=== PATIENT | male | born 1990 | race Two or more races ===

== ENCOUNTER 2020-03-14 09:19 | Outpatient (REF) | payer SELFPAY | END 2020-03-14 09:20 | disposition home or self-care (01) | LOC: HO.LAB 09:19 | PROVIDERS: Visit Provider Internal Medicine | DX: Z20.828 Contact with and (suspected) exposure to other viral communicable diseases (principal) | CPT/HCPCS: C9803; U0003 ==

== ENCOUNTER 2020-05-09 19:15 | Emergency (ER) | payer MEDICAID, SELFPAY ==
[2020-05-09 19:24] VITALS: BP 129/74; PULSE 95; RESP 16; TEMP 37.3; O2SAT 98; BMI 25.1
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
--- NOTE | 2020-05-09 22:32 | PC.NURSE ---
PT EATING AND DRINKING IN ROOM WITH OUT ISSUE.
== END 2020-05-09 22:32 | disposition home or self-care (01) ==
PROVIDERS: Emergency Provider Emergency Medicine Emergency Medical Services
DX: S09.90XA Unspecified injury of head, initial encounter (principal); S06.0X0A Concussion without loss of consciousness, initial encounter; S00.11XA Contusion of right eyelid and periocular area, initial encounter; Y00.XXXA Assault by blunt object, initial encounter; Y93.9 Activity, unspecified; Y92.9 Unspecified place or not applicable; Y99.9 Unspecified external cause status; F17.200 Nicotine dependence, unspecified, uncomplicated
CPT/HCPCS: 70450; 70480; 72125; 99284

== ENCOUNTER 2025-01-04 19:26 | Emergency (ER) | payer MEDICAID, SELFPAY ==
--- NOTE | 2025-01-04 | ECG_ITS ---
Test Reason : CHEST PAIN Blood Pressure : */* mmHG Vent. Rate : 80 BPM Atrial Rate : 80 BPM P-R Int : 150 ms QRS Dur : 94 ms QT Int : 364 ms P-R-T Axes : 50 46 10 degrees QTcB Int : 419 ms Normal sinus rhythm Normal ECG When compared with ECG of 15-Nov-2013 01:03, No significant change was found Referred By: Generic ED Physician Electronically Signed By: Diomedes Zarco
--- NOTE | ~2025-01-04 | XR_ITS ---
CLINICAL HISTORY: cp 2 view chest x-ray Comparison: None provided Findings: No consolidation or effusion. Normal size heart. No acute fracture. IMPRESSION: 1. No acute findings. This document has been electronically signed by: Bobby Walls MD on 01/04/2025 21:43:46
[2025-01-04 19:36] VITALS: BP 129/75; PULSE 81; RESP 17; TEMP 36.6; O2SAT 98; BMI 29.4
--- NOTE | 2025-01-04 19:37 | ED_ITS ---
HPI - General Adult General Chief complaint: Chest Pain Stated complaint: CP, increase BP Time Seen by Provider: 01/04/25 23:20 Source: patient, RN notes reviewed and old records reviewed Mode of arrival: ambulatory Limitations: no limitations History of Present Illness ED Provider: Britany HPI narrative: 34-year-old male who denies any known past medical history presents for evaluation of left-sided chest pain. The patient reports that he had a brief episode of chest pain that was left- sided radiating to his left arm around 5 or 6 p.m. today. His symptoms started while he was playing with his child He describes it as moderate exertion. He reports this is the 3rd episode of chest pain with similar a exertion in the last 2 months He denies any history of hypertension, coronary artery disease or hyperlipidemia. He reports some family history of coronary artery disease with his maternal aunt in his grandfather having MIs Currently the patient has no chest pain or shortness of breath. He denies any fevers, chills, coughing No other complaints or concerns at this time Related Data Allergies Allergy/AdvReac Type Severity Reaction Status Date / Time No Known Allergies Allergy Verified 01/04/25 19:39 Review of Systems 2 Constitutional: Constitutional: Denies body ache(s), Denies chills and Denies fever(s) Eyes: Eyes: Denies blurry vision ENT: Denies vertigo and Denies dizziness Cardiovascular: Cardiovascular: Reports chest pain, Reports chest pain with activity and Denies dyspnea Respiratory: Respiratory: Denies dyspnea Gastrointestinal: Gastrointestinal: Denies abdominal pain, Denies nausea and Denies vomiting Musculoskeletal: Musculoskeletal: Denies back pain Integumentary/Breasts: Skin/Breast: Denies rash Neurologic: Denies vertigo and Denies dizziness Psychiatric: Psychiatric: Denies anxiety [facility] Past Medical History Medical History (Updated 01/05/25 @ 00:33 by Landen Garg) No known health problems Social History Social History Alcohol intake: never Advance Directives: No Advance Directives Information Provided: No Do you have a plan to hurt others: No Plan Physical Exam ED Vital Signs: Vital Signs - 24 hr 01/04/25 19:36 01/04/25 22:41 01/05/25 00:31 Temperature 97.8 F 97.8 F Pulse Rate 81 68 77 Respiratory Rate 17 11 L 13 Blood Pressure 129/75 128/83 121/76 Pulse Oximetry 98 99 96 Oxygen Delivery Method Room Air Room Air Room Air BMI result Body Mass Index 29.4 Const General: healthy appearing, comfortable, no acute distress, alert and awake Nutritional Appearance: well nourished Orientation/consciousness: patient oriented x3 HENMT Head: Yes normocephalic and Yes atraumatic Eyes Eyelids: Yes eyelids normal Conjunctivae: conjunctivae normal Sclerae: sclerae normal Corneas: corneas normal Pupils: Equal, round and reactive pupils present EOM: EOMs intact bilaterally Neck Neck: Yes full ROM Resp Effort & Inspection: normal respiratory effort, able to speak in complete sentences and not labored Cardio Rate: regular rate Rhythm: regular rhythm GI Inspection: No distended Palpation (GI): Soft to palpation, not firm, nontender, no guarding and not rigid Skin General skin exam: elasticity normal Neuro General: patient oriented x3 Cranial nerves: Yes Equal, round and reactive pupils present and Yes Bilaterally intact EOM present Cognition (Neuro): normal cognition Extrem Other: Moving all extremities well without any obvious deformities Course Course Course Narrative: This is a Rapid Medical Examination (RME) performed by Micki Jason PA-C in triage. Full HPI, ROS, assessment and treatment plan per primary provider in the Main ED. Hx: 34 yo M here for eval of chest pains, tingling in UEs, and elevated BP x 2 hours. Plan: labs, ekg Medical Decision Making Medical Decision Making [facility] Narrative: 34-year-old male with no significant past medical history presents for evaluation of an episode chest pain. In fact this is the 3rd episode of chest pain no last 2 months with slight exertion. He reports that his symptoms previously resolved in the room and after about an hour or two. Currently he is asymptomatic. His EKG is nonischemic. Initial troponin is negative, vital signs are stable. He had a chest x-ray ordered that did not show any acute findings. We will order a repeat troponin as he came in shortly after his pain started, if this is negative I anticipate discharge. The patient will likely require follow up with Cardiology due to his exertional angina and family history of coronary artery disease. He is PERC negative Differential Diagnosis Differential Diagnoses: The differential diagnosis associated with the presentation includes pain ACS PE Pneumothorax Bronchitis Lab Data [facility] Lab Attestation statement: I reviewed the patient's lab results. The patient has a mild leukocytosis without a left shift. A very slight anemia of unclear etiology. This is normocytic anemia. There was no evidence of active bleeding. Chemistries are within normal limits, in his troponin negative, renal functions are normal limits. 01/04/25 20:33 01/04/25 20:33 Labs: Lab Results 01/04/25 01/04/25 Range/Units 20:33 23:52 WBC 11.3 H (4.8-10.8) X10*3/uL RBC 4.86 (4.60-5.80) X10*6/uL Hgb 13.2 L (14.0-18.0) g/dl Hct 39.7 L (42.0-52.0) % MCV 81.7 (80.0-98.0) fL MCH 27.2 (27.0-33.0) pg MCHC 33.2 (31.0-36.0) g/dl RDW 14.6 (11.0-16.0) % Plt Count 409 H (160-400) X10*3/uL MPV 9.5 (9.4-12.4) fL Immature Gran % (Auto) 0.3 (0.0-0.4) % Neut % (Auto) 50.7 (45-73) % Lymph % (Auto) 34.3 (20-40) % Barber % (Auto) 7.2 (2-11) % Eos % (Auto) 6.9 H (0-4) % Baso % (Auto) 0.6 (0-2) % Lymph # (Auto) 3.9 (1.2-4.9) X10*3/uL Barber # (Auto) 0.8 (0.1-1.2) X10*3/uL Eos # (Auto) 0.8 H (0.0-0.4) X10*3/uL Baso # (Auto) 0.1 (0.0-0.2) X10*3/uL Abs Immat Gran (auto) 0.03 (0.00-0.03) X10*3/uL Absolute Neuts (auto) 5.7 (2.0-8.3) x10*3/uL Absolute Nucleated RBC 0.000 (0.0-0.012) X10*3/uL Nucleated RBC % (auto) 0.0 (0.0-0.2) /100WBC Sodium 142 (135-145) mmol/L Potassium 4.1 (3.3-5.1) mmol/L Chloride 107 (96-108) mmol/L Carbon Dioxide 27 (22-29) mmol/L Anion Gap 12 (12-20) BUN 15 (9-16) mg/dL Creatinine 1.26 (0.5-1.4) mg/dL Estim Creat Clear Calc 96.5 Estimated GFR > 60 Random Glucose 101 (60-115) mg/dL Calcium 9.3 (8.4-10.2) mg/dL Magnesium 2.1 (1.6-2.6) mg/dL Total Bilirubin 0.2 (0.0-1.0) mg/dL AST 26 (5-37) U/L ALT 37 (0-40) U/L Alkaline Phosphatase 118 H (39-117) U/L Troponin I High Sens < 2.7 < 2.7 (<3.5-35.0) ng/L Total Protein 8.4 H (6.5-8.0) g/dL Albumin 4.4 (3.5-5.0) g/dL Lipase 27 (8-78) U/L Independent Interpretation I performed an independent interpretation of an: EKG Interpretation: Normal sinus rhythm with a rate of [address] segment elevation or depressions. Nondiagnostic EKG Radiology Impression Discussion of test interpretation with radiology: I have reviewed the radiologist's reading. Radiologist Impression: CLINICAL HISTORY: cp 2 view chest x-ray Comparison: None provided Findings: No consolidation or effusion. Normal size heart. No acute fracture. IMPRESSION: 1. No acute findings. This document has been electronically signed by: Bobby Walls MD on 01/04/2025 21:43:46 Discharge Plan Discharge Clinical Impression: Chest pain Patient Disposition: Home, Self-Care Instructions: Chest Pain (ED) Additional Instructions: Your work up in the ER today was reassuring This includes your labs, EKG, and chest x-ray I receommend that you follow up with cardiology given your chest pain and family history Referrals: [facility] [Provider Group] Referral Note: recurrent chest pain with exertion Print Language: [place] Citizen
[2025-01-04 20:37] LABS: MANUAL DIFF FLAG NO
[2025-01-04 20:38] LABS: Hematocrit 39.7 % (42.0-52.0); Hemoglobin 13.2 g/dl (14.0-18.0); Imm Gran Abs Auto 0.03 X10*3/uL (0.00-0.03); Imm Gran Pct Auto 0.3 % (0.0-0.4); Lymphocytes Absolute Auto 3.9 X10*3/uL (1.2-4.9); Mean Corpuscular HGB Conc 33.2 g/dl (31.0-36.0); Mean Corpuscular Hemoglobin 27.2 pg (27.0-33.0); Mean Corpuscular Volume 81.7 fL (80.0-98.0); NRBC Abs Auto 0.000 X10*3/uL (0.0-0.012); NRBC Pct Auto 0.0 /100WBC (0.0-0.2); Platelet Count 409 X10*3/uL (160-400); Red Blood Count 4.86 X10*6/uL (4.60-5.80); White Blood Count 11.3 X10*3/uL (4.8-10.8)
[2025-01-04 20:54] LABS: Alanine Aminotransferase 37 U/L (0-40); Albumin Level 4.4 g/dL (3.5-5.0); Alkaline Phosphatase 118 U/L (39-117); Anion Gap 12 (12-20); Aspartate Amino Transferase 26 U/L (5-37); Blood Urea Nitrogen 15 mg/dL (9-16); Calcium 9.3 mg/dL (8.4-10.2); Carbon Dioxide 27 mmol/L (22-29); Chloride 107 mmol/L (96-108); Creatinine Clr Calc Pharmacy 96.5; Estimated Glomerular Filt Rate > 60; Lipase 27 U/L (8-78); Magnesium 2.1 mg/dL (1.6-2.6); Potassium 4.1 mmol/L (3.3-5.1); Sodium 142 mmol/L (135-145); Total Protein 8.4 g/dL (6.5-8.0)
[2025-01-04 21:02] LABS: Troponin-I High Sensitivity < 2.7 ng/L (<3.5-35.0)
--- NOTE | 2025-01-04 22:36 | PC.NURSE ---
Pt presents with left-sided chest pain that radiates down his left arm, pt stated that this started when he was outside playing with his kids and all of a sudden felt dizziness and palpatations, denies shortness of breath pt stated this happen a month ago with the same symptoms, takes suboxone 8 mg daily, NAD, VSS,
[2025-01-04 22:41] VITALS: BP 128/83; PULSE 68; RESP 11; O2SAT 99
[2025-01-05 00:16] LABS: Troponin-I High Sensitivity < 2.7 ng/L (<3.5-35.0)
[2025-01-05 00:31] VITALS: BP 121/76; PULSE 77; RESP 13; TEMP 36.6; O2SAT 96
[2025-01-05 00:42] VITALS: BP 121/76; PULSE 77; RESP 13; TEMP 36.6; O2SAT 96
== END 2025-01-05 00:42 | disposition home or self-care (01) ==
PROVIDERS: Physician Assistant; Physician Assistant Medical; Emergency Provider Emergency Medicine Emergency Medical Services
DX: R07.89 Other chest pain (principal); M79.602 Pain in left arm; Z79.899 Other long term (current) drug therapy
CPT/HCPCS: 36415; 71046; 80053; 83690; 83735; 84484; 85025; 93005; 99283; 99285

== ENCOUNTER → 2025-01-04 19:34 | Outpatient (BNV) | payer MEDICAID, SELFPAY | PROVIDERS: Emergency Provider Emergency Medicine Emergency Medical Services; Visit Provider Internal Medicine Cardiovascular Disease | DX: R07.89 Other chest pain (principal) | CPT/HCPCS: 93010 ==

== ENCOUNTER → 2025-01-04 21:06 | Outpatient (BNV) | payer MEDICAID, SELFPAY | PROVIDERS: Visit Provider Radiology Diagnostic Radiology | DX: R07.89 Other chest pain (principal) | CPT/HCPCS: 71046 ==